=== PATIENT | male | born 1995 | race Caucasian/White ===

== ENCOUNTER 2021-05-22 23:41 | Emergency (ER) | payer SELFPAY ==
[2021-05-22 23:42] VITALS: BP 132/81; PULSE 64; RESP 16; TEMP 36.6; O2SAT 98; BMI 21.0
--- NOTE | 2021-05-23 00:02 | EDS_ITS ---
HPI History of Present Illness Chief Complaint: Ear Problem Narrative Narrative: Patient is a 26-year-old male who states he has had congestion and cough for the past 1 to 2 days. He states that today he noticed pain from his right ear. He denies any trauma or discharge from the ear but states it is difficult to hear. He is concerned he may have developed a ear infection and secondary to this comes to the hospital for evaluation [facility] Medical History no medical history Home Medications amoxicillin-pot clavulanate 1 tab PO BID 10 Days #20 tab 05/23/21 [Rx Last Taken Unknown] ofgolscm-mmrucw-KJ-thonzonium [Cortisporin-TC] 4 drp RIGHT EAR 4X/DAY 10 Days #10 ml 05/23/21 [Rx Last Taken Unknown] prednisone 40 mg PO DAILY 7 Days #14 tab 05/23/21 [Rx Last Taken Unknown] Allergy/AdvReac Type Severity Reaction Status Date / Time No Known Allergies Allergy Verified 05/22/21 23:42 Surgical History no surgical history Social History Smoking Status: Current some day smoker tobacco type: cigarettes ROS ROS ED Constitutional Constitutional ED: Denies chills or fever(s) ENT ENT ED: Reports ear pain, rhinorrhea and sore throat Cardiovascular Cardiovascular: Denies chest pain Respiratory/Chest Respiratory/Chest: Reports cough; Denies dyspnea Gastrointestinal Gastrointestinal: Denies abdominal pain, diarrhea, nausea or vomiting Genitourinary Genitourinary ED: Denies dysuria Musculoskeletal Musculoskeletal: Denies myalgias Integumentary Denies rash Neurologic Neurologic: Denies headache(s) Hematologic/Lymphatic Hematologic/Lymphatic: Denies easy bleeding or easy bruising EXAM Physical Exam Const Vital Signs: 05/22/21 23:42 Temperature 98 F Temperature Source Temporal Pulse Rate 64 Respiratory Rate 16 Blood Pressure 132/81 H Blood Pressure Mean 98 Pulse Ox 98 Oxygen Delivery Method Room Air Positive well nourished and well developed General Appearance ED: well developed HEENT Reports moist mucous membranes HEENT Narrative: Nasal mucosa is hyperemic and boggy with enlarged inferior nasal turbinates. There is cobblestoning the posterior pharynx consistent with sinus drainage. There is no pain with palpation of the mastoids bilaterally. Left ear canal and TM are normal. Right ear canal is erythematous and edematous and there is erythema with loss of landmarks of the right TM. There is also mi ld pain with external manipulation of the right ear consistent with otitis externa and otitis media. No secondary changes to suggest malignant otitis externa. Eyes PERRL and EOMs intact bilaterally Neck supple Resp normal respiratory effort and clear to auscultation bilaterally Cardio regular rate and regular rhythm Extremity normal to inspection Neuro oriented x3 and CN's II-XII intact bilaterally Sensorium / Orientation: alert Motor Exam: strength 5/5 throughout Psych mental status grossly normal Skin no rashes or lesions noted MDM MDM MDM Narrative Medical decision making narrative: Patient presented to the ER with stable vitals and in no acute respiratory distress. His physical exam is consistent with otitis externa and otitis media. He does not have physical exam findings to suggest malignant otitis externa and therefore do not feel there is need for imaging or laboratory studies. Patient will be put on antibiotic eardrops as well as pills secondary to the infection and is otherwise safe for discharge Discharge Plan Triage Chief Complaint: Ear Problem ED Provider: Manan Kilpatrick Dx/Rx/DC Orders Clinical Impression: Otitis externa, Otitis media Instructions: ED Otitis Media Antibiotic ..., ED External Ear Infection (Adult) Prescriptions: New amoxicillin-pot clavulanate 875-125 mg tablet 1 tab PO BID 10 Days Qty: 20 RF: 0 prednisone 20 mg tablet 40 mg PO DAILY 7 Days Qty: 14 RF: 0 Cortisporin-TC 3.3-3-10-0.5 mg/mL drops,suspension 4 drp RIGHT EAR 4X/DAY 10 Days Qty: 10 RF: 0 Primary Care Provider: Care Physician,No Primary Referrals: Barry Montez MD [STAFF PHYSICIAN] - 1 Week if not improving Care Physician,No Primary [Primary Care Provider] - Disposition Disposition: Home, Self Care Discharge Date/Time: 05/23/21 00:16
[2021-05-23] MEDS: dexAMETHasone 10 MG/ML Vial PO.IVFORM (00:07)
[2021-05-23] MEDS: Amox/Clavulanate 875 MG Tablet PO (00:08)
[2021-05-23] MEDS: oxyCODONE 5 MG Tablet 10 MG PO (00:08)
[2021-05-23] MEDS: Neomycin/Polymyxin/Dexameth 5ML OPTH.BTL 4 DRP OTIC (00:13)
== END 2021-05-23 00:16 | disposition home or self-care (01) ==
LOC: ED 05-23 00:07
PROVIDERS: Emergency Provider Emergency Medicine; Visit Provider Emergency Medicine
DX: H60.90 Unspecified otitis externa, unspecified ear (principal); F17.210 Nicotine dependence, cigarettes, uncomplicated; H66.90 Otitis media, unspecified, unspecified ear
CPT/HCPCS: 99285

== ENCOUNTER 2021-05-29 22:29 | Emergency (ER) | payer SELFPAY ==
[2021-05-29 22:31] VITALS: BP 136/76; PULSE 83; RESP 16; TEMP 36.6; O2SAT 98; BMI 18.8
--- NOTE | 2021-05-29 22:46 | EDS_ITS ---
HPI History of Present Illness Chief Complaint: Anxiety Narrative Narrative: Patient is a 26-year-old male with past medical history of anxiety ADHD and PTSD as well as bipolar with jarret. He states he has been off his medications for multiple years. He reports that over the past week or so he has been having increased stress at home which has been worsening his mental status. He denies any homicidal or suicidal ideation but with his increased anxiety he felt he needed to be back on medications and therefore called EMS to come into the hospital for evaluation. PFSH PFSH Home Medications amoxicillin-pot clavulanate 1 tab PO BID 10 Days #20 tab 05/23/21 [Rx Last Taken Unknown] mncjlqhu-emlvos-ZP-thonzonium [Cortisporin-TC] 4 drp RIGHT EAR 4X/DAY 10 Days #10 ml 05/23/21 [Rx Last Taken Unknown] prednisone 40 mg PO DAILY 7 Days #14 tab 05/23/21 [Rx Last Taken Unknown] buspirone 7.5 mg PO BID 30 Days #60 tab 05/29/21 [Rx Last Taken Unknown] quetiapine [Seroquel] 50 mg PO QHS 30 Days #30 tab 05/29/21 [Rx Last Taken Unknown] Allergy/AdvReac Type Severity Reaction Status Date / Time No Known Allergies Allergy Verified 05/29/21 22:35 Social History Smoking Status: Current some day smoker tobacco type: cigarettes ROS ROS ED Constitutional Constitutional ED: Denies chills or fever(s) ENT ENT ED: Denies sore throat Cardiovascular Cardiovascular: Denies chest pain Respiratory/Chest Respiratory/Chest: Denies cough or dyspnea Gastrointestinal Gastrointestinal: Denies abdominal pain, diarrhea, nausea or vomiting Genitourinary Genitourinary ED: Denies dysuria Musculoskeletal Musculoskeletal: Denies myalgias Integumentary Denies rash Neurologic Neurologic: Denies headache(s) Psychiatric Psychiatric: Reports anxiety; Denies suicidal ideation or suicidal thoughts Hematologic/Lymphatic Hematologic/Lymphatic: Denies easy bleeding or easy bruising EXAM Physical Exam Const Vital Signs: 05/29/21 22:31 Temperature 97.8 F Temperature Source Temporal Pulse Rate 83 Respiratory Rate 16 Blood Pressure 136/76 H Blood Pressure Mean 96 Pulse Ox 98 Oxygen Delivery Method Room Air Positive well nourished and well developed General Appearance ED: well developed HEENT Reports TM's clear Tympanic Membrane ED: Yes TM's clear Eyes PERRL and EOMs intact bilaterally Neck supple Resp normal respiratory effort and clear to auscultation bilaterally Cardio regular rate and regular rhythm GI normal to inspection, nondistended, normoactive bowel sounds, non-tender, non- distended and no masses Auscultation: normoactive bowel sounds Palpation: soft Extremity normal to inspection Neuro oriented x3 and CN's II-XII intact bilaterally Sensorium / Orientation: alert Motor Exam: strength 5/5 throughout Psych Psych Narrative: Patient is anxious without homicidal or suicidal ideation Mood & Affect: anxious Skin no rashes or lesions noted MDM MDM MDM Narrative Medical decision making narrative: Patient presented to the ER with stable vitals. He reported a longstanding history of anxiety from his history of PTSD ADHD and bipolar with jarret. Despite this he has been off his medications. At this time he does not have homicidal or suicidal ideation so I do not feel there is need for psychiatric evaluation. Patient will be treated with Ativan in the ER and I will place him back on BuSpar and Seroquel which he has been on in the past to help control symptoms. Patient will follow up on an outpatient basis to discuss need for further medication or increase dosages of the prescribed meds today. Patient states he is agreeable to this plan and therefore will be discharged at this time in stable condition. Discharge Plan Triage Chief Complaint: Anxiety ED Provider: Manan Kilpatrick Dx/Rx/DC Orders Clinical Impression: Anxiety, Bipolar disorder Instructions: ED Anxiety Reaction, ED Bipolar Disorder Prescriptions: New buspirone 7.5 mg tablet 7.5 mg PO BID 30 Days Qty: 60 RF: 0 quetiapine [Seroquel] 50 mg tablet 50 mg PO QHS 30 Days Qty: 30 RF: 0 No Action amoxicillin-pot clavulanate 875-125 mg tablet 1 tab PO BID 10 Days Qty: 20 RF: 0 prednisone 20 mg tablet 40 mg PO DAILY 7 Days Qty: 14 RF: 0 Cortisporin-TC 3.3-3-10-0.5 mg/mL drops,suspension 4 drp RIGHT EAR 4X/DAY 10 Days Qty: 10 RF: 0 Primary Care Provider: Care Physician,No Primary Referrals: Umm Niño MD [STAFF PHYSICIAN] - 1 Week Care Physician,No Primary [Primary Care Provider] - Activity Restrictions/Additional Instructions: Please follow-up with your family doctor to discuss need for continuing your medications to control your anxiety and possibly ramping up the dosage for improved control of your symptoms Disposition Disposition: Home, Self Care
[2021-05-29 23:04] VITALS: BP 132/72; PULSE 81; RESP 16; O2SAT 97
== END 2021-05-29 23:05 | disposition home or self-care (01) ==
PROVIDERS: Emergency Provider Emergency Medicine; Visit Provider Emergency Medicine
DX: F31.9 Bipolar disorder, unspecified (principal); F41.9 Anxiety disorder, unspecified; F17.210 Nicotine dependence, cigarettes, uncomplicated; F90.9 Attention-deficit hyperactivity disorder, unspecified type
CPT/HCPCS: 96372; 99283

== ENCOUNTER 2021-05-30 05:31 | Emergency (ER) | payer OTHER, SELFPAY ==
[2021-05-30 05:32] VITALS: BP 134/82; PULSE 73; RESP 16; TEMP 36.7; O2SAT 98; BMI 18.8
[2021-05-30 06:11] LABS: Absolute Lymphocyte Count 2.82 X10^3/uL (0.83-4.51); Absolute Neutrophil Count 7.2 X10^3/uL (2.0-7.7); Basophil# 0.03 X10^3/uL; Basophil% 0.3 % (0-1); Eosinophils% 1.8 % (0-5); Hematocrit 44.3 % (40-54); Hemoglobin 15.1 g/dL (13.0-16.5); Lymphocyte # 2.82 X10^3/ul (0.83-4.51); Mean Corp Hgb Conc 34.1 g/dL (32-36); Mean Corpuscular Volume 87.9 fL (80-94); Mean Platelet Vol. 9.6 fl (6.2-12.0); Monocyte# 0.95 X10^3/uL; Monocyte% 8.4 % (0-10); NRBC Flagged by Analyzer 0 % (0-5); Neutrophil # 7.23 X10^3/uL (2.7-7.7); Neutrophil % 64.1 % (47-70); Platelet Count 377 K/mm3 (150-450); RBC Distribution Width CV 12.8 % (11.6-14.6); RBC Distribution Width SD 41.3 fl (35.1-43.9); Red Blood Count 5.04 M/mm3 (4.6-6.2); White Blood Count 11.3 K/mm3 (4.4-11.0)
[2021-05-30 06:29] LABS: Anion Gap 5 (5-15); BUN 16 mg/dL (7-18); BUN/Creat Ratio 15.8 RATIO (10-20); Calcium,Total 9.6 mg/dL (8.5-10.1); Chloride 106 mmol/L (98-107); Creatinine, Serum 1.01 mg/dL (0.70-1.30); EST Glomerular Filtration Rate 93 mL/min (>60); Est Glom Filt Rate - Afr Amer 113 mL/min (>60); Estimated Creatinine Clearance 94.31 ml/min; Glucose 100 mg/dL (74-106); Sodium Level 137 mmol/L (136-145)
[2021-05-30 06:52] LABS: Acetaminophen (Tylenol) Level < 2.0 ug/mL (10.0-30.0); Salicylate < 1.7 mg/dL (2.8-20.0)
[2021-05-30 06:53] LABS: Amphetamine Urine VISTA POSITIVE (<1000 ng/mL); Barbiturate Urine VISTA NEGATIVE (< 200 ng/mL); Benzodiazepine Urine VISTA NEGATIVE (< 200 ng/mL); Cocaine Urine VISTA NEGATIVE (< 300 ng/mL); Ecstacy Urine VISTA NEGATIVE (< 500 ng/mL); Methadone Urine VISTA NEGATIVE (< 300 ng/mL); PCP Urine VISTA NEGATIVE (< 25 ng/mL); THC Urine VISTA POSITIVE (< 50 ng/mL); Vista UDS pH Range 5
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
--- NOTE | 2021-05-30 11:14 | NURSING ---
pt incont of stool and attends placed by lead tinner after up to br to go. jose de jesus ogden to call crisis for placement possibly
[2021-05-30 11:39] VITALS: BP 118/70; PULSE 81; RESP 18; O2SAT 95
--- NOTE | 2021-05-30 12:57 | CM.ED ---
NIKOLAI Note NIKOLAI met with hot air furnace installer repairer Flor who indicated patient has no insurance. NIKOLAI called Cally at [facility] and updated her that patient has no insurance. NIKOLAI faxed referral to [facility]. NIKOLAI updated football pad repairer Pepper and MD Brewer. Ro VOSS
[2021-05-30 13:15] VITALS: RESP 16
--- NOTE | 2021-05-30 13:47 | ED.RN ---
kamari from crisis center on phone and doing remote evaluation with pt at this time for placement.
--- NOTE | 2021-05-30 14:16 | CM.ED ---
NIKOLAI Note Cally from Crisis inquired if the assessment is in person or telehealth. NIKOLAI indicated telehealth is fine. NIKOLAI introduced self to patient and advised that Cally from Crisis on the phone to speak to him. Ro VOSS
[2021-05-30] MEDS: LORazepam 1 MG Tablet PO ×2 (14:57→21:17)
[2021-05-30 19:00] VITALS: BP 121/72; PULSE 67; RESP 15; TEMP 36.6; O2SAT 99
--- NOTE | 2021-05-30 21:43 | CM.ED ---
Rebeca from Crisis came to speak to patient. Rebeca indicated that patient's address in [place] is not a valid address. Rebeca will be speaking to patient. Rebeca said that patient has [place] medicaid. Crisis will keep staff updated. Ro VOSS
[2021-05-30 23:34] VITALS: RESP 16
[2021-05-30 23:54] VITALS: BP 111/87; PULSE 98; RESP 14; O2SAT 100
[2021-05-31] VITALS (13 sets, daily range): BP systolic 117–130; BP diastolic 60–74; PULSE 80–100; RESP 14–20; TEMP 36.7–37; O2SAT 95–100
[2021-05-31] MEDS: LORazepam 1 MG Tablet PO ×2 (05:38→15:07)
--- NOTE | 2021-05-31 11:10 | CM.ED ---
Social Work Telephone call to crisis, Daksha. Daksha reports that patient is pending at [facility]. Medical team updated. Will continue to follow. Stephanie WALL, NINO
--- NOTE | 2021-05-31 17:17 | CM.ED ---
Social Work Telephone call to crisis, Daksha. Daksha reports to still be working on case. Will continue to follow. Stephanie Doll FILM COMPOSER, JNS
--- NOTE | 2021-05-31 17:47 | NURSING ---
NO OLD EKGS
--- NOTE | 2021-05-31 18:02 | EKG12_ITS ---
Test Reason : MHC Blood Pressure : / mmHG Vent. Rate : 069 BPM Atrial Rate : 069 BPM P-R Int : 160 ms QRS Dur : 086 ms QT Int : 372 ms P-R-T Axes : 061 095 074 degrees QTc Int : 398 ms Normal sinus rhythm Normal ECG Confirmed by SHALINI ENGLAND, CORRY ([id number]), scientific publications editor AZAM FELICIANO ([id number]) on 06/02/2021 1:01:48 PM Referred By: VIELKA Confirmed By:DANIEL LOYA MD
--- NOTE | 2021-05-31 18:10 | CM.ED ---
Social Work Telephone call received from [facility], requesting a total CK, EKG, and confirm medical clearance. Patient is accepted pending this information. Medical team updated. Will obtain clinicals and fax. PLAN: Sade WALL, NINO
[2021-05-31 18:21] LABS: CPK Total, Creatine Kinase 78 U/L (39-308)
--- NOTE | 2021-05-31 18:37 | CM.ED ---
Social Work Requested clinical information faxed to [facility]. Will continue to follow. Stephanie WALL, NINO
--- NOTE | 2021-05-31 20:19 | NURSING ---
attempted to call report to [facility], all nurses busy at this time left return number.
--- NOTE | 2021-05-31 21:04 | NURSING ---
Report given to Cesar from [facility].
[2021-06-01] VITALS: BP 117/60; PULSE 100; RESP 18; TEMP 37.1; O2SAT 100
== END 2021-06-01 00:45 ==
PROVIDERS: Emergency Medicine; Emergency Provider Emergency Medicine; Visit Provider Emergency Medicine
DX: R45.851 Suicidal ideations (principal); F17.200 Nicotine dependence, unspecified, uncomplicated; F41.9 Anxiety disorder, unspecified; F32.A Depression, unspecified
CPT/HCPCS: 80048; 80307; 80329; 82077; 82550; 85025; 87811; 93005; 99285; G0480